=== PATIENT | male | born 1985 | race Caucasian/White ===

== ENCOUNTER 2017-11-27 12:58 | Emergency (ER) | payer BC, OTHER ==
[2017-11-27 13:21] VITALS: RESP 18
--- NOTE | 2017-11-27 13:58 | ED ---
General Adult HPI - General Chief complaint: Abdominal Pain Stated complaint: Abd Pain Time Seen by Provider: 11/27/17 13:31 Source: patient, RN notes reviewed Mode of arrival: ambulatory Limitations: no limitations - History of Present Illness Initial comments: Chief complaint history of present illness a 32-year-old male reports on-again off-again discomfort in the epigastric region. He saw his family doctor several weeks ago was placed on Pepcid. He's been taking it daily. For the past 3 or 4 days he reports the pain has continued epigastric region and radiates down to the back. Patient denies any direct injury though he does state that at work he does more bending and lifting. Patient denies any difficulty urinating no trouble or change in urinating. Reports she has a good appetite. Antacids don't help. No change in color of urine or stool. - Related Data Home Medications Medication Instructions Recorded Confirmed Bisoprolol-Hctz 2.5-6.25 mg [Ziac 1 tab PO DAILY 11/27/17 11/27/17 2.5-6.25] Ibuprofen [Motrin] 600 mg PO Q8HR PRN 11/27/17 11/27/17 Previous Rx's Medication Instructions Recorded Famotidine [Pepcid] 20 mg PO DAILY #30 tablet 11/27/17 Allergies Allergy/AdvReac Type Severity Reaction Status Date / Time No Known Allergies Allergy Verified 11/27/17 13:34 Review of Systems ROS Statement: Those systems with pertinent positive or pertinent negative responses have been documented in the HPI. Review of systems. No headache or visual acuity changes no chest pain or shortness of breath. The patient has epigastric discomfort goes to toward the back and down toward lower back area. No change in appetite. No change in bowel habits or frequency, no dysuria. No numbness no tingling no other changes other than epigastric discomfort. All systems were reviewed. Past medical problems hypertension. Surgeries none. Family history noncontributory and is much is no evidence of cancers or intestinal problems. Patient denies ALLERGIES, denies smoking, denies drinking. ROS Other: All systems not noted in ROS Statement are negative. Past Medical History Past Medical History: GERD/Reflux, Hypertension History of Any Multi-Drug Resistant Organisms: None Reported Past Surgical History: No Surgical Hx Reported Past Psychological History: No Psychological Hx Reported Smoking Status: Never smoker Past Alcohol Use History: None Reported Past Drug Use History: None Reported General Exam - General Exam Comments Initial Comments: General: The patient is awake and alert, in no distress, and does not appear acutely ill. Appears healthy. Complains of epigastric discomfort and has not seemed to change much with the past 4 days. Vital signs temp 98.0 pulse 71 respiratory rate 18 pulse ox 90% room air blood pressure 127/77 Eye: Pupils are equal, round and reactive to light, extra-ocular movements are intact ; there is normal conjunctiva bilaterally. No signs of icterus. Ears, nose, mouth and throat: There are moist mucous membranes and no oral lesions. Moderately severe overbite Neck: The neck is supple, there is no tenderness, no anterior cervical lymphadenopathy. Cardiovascular: There is a regular rate and rhythm. No murmur, rub or gallop is appreciated. Respiratory: Lungs are clear to auscultation, respirations are non-labored, breath sounds are equal. No wheezes, stridor, rales, or rhonchi. Gastrointestinal: Soft, non-distended, non-tender abdomen without masses or organomegaly noted. There is no rebound or guarding present. No CVA tenderness. Bowel sounds are unremarkable. No pain with deep palpation. Back: There is no tenderness to palpation in the midline. There is no obvious deformity. No rashes noted. Musculoskeletal: Normal ROM, no tenderness, There is no pedal edema. There is no calf tenderness or swelling. Sensation intact. Neurological: Denies any difficulty walking or with balance. No focal or lateralizing signs. Skin: Skin is warm and dry and no rashes or lesions are noted. Psychiatric: Cooperative, appropriate mood & affect, Limitations: no limitations Course Vital Signs 11/27/17 13:17 Temperature 98 F Pulse Rate 71 Respiratory 18 Rate Blood Pressure 127/77 O2 Sat by Pulse 98 Oximetry Medical Decision Making - Medical Decision Making Medical decision making; this is a 32-year-old male who complains of epigastric discomfort for ongoing for 3 weeks. The pain occasionally radiates through to his back. No change in appetite, no change in frequency or color of stool or urine. Labs show white count 6 hemoglobin 15 hematocrit of 47 with a potassium 4.3. BUN 14 creatinine 1.03 the GFR greater than 90. Glucose 95. Plasma lactic acid normal at 0.8. Amylase lipase within normal limits. Urine clean no signs of infection. X-rays of the abdomen were done and reviewed radiologist his impression is there is no sign of intestinal obstruction or pneumoperitoneum. Fecal pattern is normal. There is no evidence of a mass. There are no pathologic calcifications over the kidneys. Lung bases are clear. Impression; nonacute abdomen. No change. As read by Dr. Woodall The patient did state that his family doctor, Dr. Madrid wanted him to have an endoscopy if he does not get better. The patient will be advised to continue with Pepcid twice a day. Antacids when he has upset stomach and one hour after each meal. We discussed gastritis wall no ulcers or gastric ulcers etc. Labs x-rays all shared with the patient. Patient's vital signs stable advised to follow-up with family physician on Wednesday. - Lab Data Result diagrams: 11/27/17 14:07 11/27/17 14:07 Lab Results 11/27/17 11/27/17 11/27/17 Range/Units 14:07 14:07 14:22 WBC 6.3 (3.8-10.6) k/uL RBC 5.45 (4.30-5.90) m/uL Hgb 15.7 (13.0-17.5) gm/dL Hct 47.9 (39.0-53.0) % MCV 87.8 (80.0-100.0) fL MCH 28.8 (25.0-35.0) pg MCHC 32.9 (31.0-37.0) g/dL RDW 13.1 (11.5-15.5) % Plt Count 294 (150-450) k/uL Neutrophils % 65 % Lymphocytes % 24 % Monocytes % 7 % Eosinophils % 2 % Basophils % 1 % Neutrophils # 4.0 (1.3-7.7) k/uL Lymphocytes # 1.5 (1.0-4.8) k/uL Monocytes # 0.5 (0-1.0) k/uL Eosinophils # 0.1 (0-0.7) k/uL Basophils # 0.0 (0-0.2) k/uL Sodium 140 (137-145) mmol/L Potassium 4.3 (3.5-5.1) mmol/L Chloride 103 (98-107) mmol/L Carbon Dioxide 28 (22-30) mmol/L Anion Gap 9 mmol/L BUN 14 (9-20) mg/dL Creatinine 1.03 (0.66-1.25) mg/dL Est GFR (CKD-EPI)AfAm >90 (>60 ml/min/1.73 sqM) Est GFR (CKD-EPI)NonAf >90 (>60 ml/min/1.73 sqM) Glucose 95 (74-99) mg/dL Plasma Lactic Acid Jerry 0.8 (0.7-2.0) mmol/L Calcium 9.5 (8.4-10.2) mg/dL Total Bilirubin 0.9 (0.2-1.3) mg/dL AST 23 (17-59) U/L ALT 28 (21-72) U/L Alkaline Phosphatase 66 (38-126) U/L Total Protein 6.5 (6.3-8.2) g/dL Albumin 3.9 (3.5-5.0) g/dL Amylase 49 (30-110) U/L Lipase 56 (23-300) U/L Urine Color Urine Appearance (Clear) Urine pH (5.0-8.0) Ur Specific [place] (1.001-1.035) Urine Protein (Negative) Urine Glucose (UA) (Negative) Urine Ketones (Negative) Urine Blood (Negative) Urine Nitrite (Negative) Urine Bilirubin (Negative) Urine Urobilinogen (<2.0) mg/dL Ur Leukocyte Esterase (Negative) 11/27/17 Range/Units 15:55 WBC (3.8-10.6) k/uL RBC (4.30-5.90) m/uL Hgb (13.0-17.5) gm/dL Hct (39.0-53.0) % MCV (80.0-100.0) fL MCH (25.0-35.0) pg MCHC (31.0-37.0) g/dL RDW (11.5-15.5) % Plt Count (150-450) k/uL Neutrophils % % Lymphocytes % % Monocytes % % Eosinophils % % Basophils % % Neutrophils # (1.3-7.7) k/uL Lymphocytes # (1.0-4.8) k/uL Monocytes # (0-1.0) k/uL Eosinophils # (0-0.7) k/uL Basophils # (0-0.2) k/uL Sodium (137-145) mmol/L Potassium (3.5-5.1) mmol/L Chloride (98-107) mmol/L Carbon Dioxide (22-30) mmol/L Anion Gap mmol/L BUN (9-20) mg/dL Creatinine (0.66-1.25) mg/dL Est GFR (CKD-EPI)AfAm (>60 ml/min/1.73 sqM) Est GFR (CKD-EPI)NonAf (>60 ml/min/1.73 sqM) Glucose (74-99) mg/dL Plasma Lactic Acid Jerry (0.7-2.0) mmol/L Calcium (8.4-10.2) mg/dL Total Bilirubin (0.2-1.3) mg/dL AST (17-59) U/L ALT (21-72) U/L Alkaline Phosphatase (38-126) U/L Total Protein (6.3-8.2) g/dL Albumin (3.5-5.0) g/dL Amylase (30-110) U/L Lipase (23-300) U/L Urine Color Light Yellow Urine Appearance Clear (Clear) Urine pH 6.0 (5.0-8.0) Ur Specific [place] 1.007 (1.001-1.035) Urine Protein Negative (Negative) Urine Glucose (UA) Negative (Negative) Urine Ketones Negative (Negative) Urine Blood Negative (Negative) Urine Nitrite Negative (Negative) Urine Bilirubin Negative (Negative) Urine Urobilinogen <2.0 (<2.0) mg/dL Ur Leukocyte Esterase Negative (Negative) Disposition Clinical Impression: Acute gastritis Disposition: HOME SELF-CARE Condition: Fair Instructions: Gastritis (ED), Diet for Stomach Ulcers and Gastritis (ED) Additional Instructions: Take Pepcid morning and evening. Use antacids for an acute attack and one hour after meals and at bedtime. Do not take any nonsteroidal anti-inflammatories. Follow-up family doctor. Call early next week for the results of your H. pylori test for stomach ulcer disease. You may need to be on different medications including antibiotics. Strongly suggest you follow-up with your family doctor for endoscopy for esophageal and stomach and duodenal issues. Prescriptions: Famotidine [Pepcid] 20 mg PO DAILY #30 tablet Is patient prescribed a controlled substance at d/c from ED?: No Referrals: Will Madrid MD [Primary Care Provider] - 1-2 days Time of Disposition: 16:34
[2017-11-27 14:21] LABS: Basophils % (A) 1 %; Eosinophils # (A) 0.1 k/uL (0-0.7); Eosinophils % (A) 2 %; HCT 47.9 % (39.0-53.0); HGB 15.7 gm/dL (13.0-17.5); Lymphocytes # (A) 1.5 k/uL (1.0-4.8); Lymphocytes % (A) 24 %; MCH 28.8 pg (25.0-35.0); MCHC 32.9 g/dL (31.0-37.0); MCV 87.8 fL (80.0-100.0); Mean Platelet Volume 6.6; Monocytes # (A) 0.5 k/uL (0-1.0); Monocytes % (A) 7 %; Neutrophils % (A) 65 %; Platelet Count 294 k/uL (150-450); RBC 5.45 m/uL (4.30-5.90); RDW 13.1 % (11.5-15.5); WBC 6.3 k/uL (3.8-10.6)
[2017-11-27 14:33] LABS: ALT 28 U/L (21-72); AST 23 U/L (17-59); Albumin 3.9 g/dL (3.5-5.0); Alkaline Phosphatase 66 U/L (38-126); Amylase 49 U/L (30-110); Anion Gap 9 mmol/L; Blood Urea Nitrogen 14 mg/dL (9-20); Calcium 9.5 mg/dL (8.4-10.2); Carbon Dioxide 28 mmol/L (22-30); Chloride 103 mmol/L (98-107); Glucose 95 mg/dL (74-99); Lipase 56 U/L (23-300); Potassium 4.3 mmol/L (3.5-5.1); Sodium 140 mmol/L (137-145); Total Bilirubin 0.9 mg/dL (0.2-1.3); Total Protein 6.5 g/dL (6.3-8.2)
--- NOTE | 2017-11-27 14:58 | XR ---
EXAMINATION TYPE: XR abdomen 2V DATE OF EXAM: 11/27/2017 COMPARISON: 10/19/2010 HISTORY: Abdominal pain TECHNIQUE: 4 views FINDINGS: There is no sign of intestinal obstruction or pneumoperitoneum. Fecal pattern is normal. Th ere is no evidence of a mass. There are no pathologic calcifications over the kidneys. Lung bases are clear. IMPRESSION: Nonacute abdomen. No change.
[2017-11-27 16:06] LABS: Appearance,Urine Clear (Clear); Bilirubin,Urine Negative (Negative); Blood,Urine Negative (Negative); Color,Urine Light Yellow; Glucose,Urine (UA) Negative (Negative); Ketones,Urine Negative (Negative); Leukocyte Esterase,Urine Negative (Negative); Nitrite,Urine Negative (Negative); Protein,Urine Negative (Negative); Specific Gravity,Urine 1.007 (1.001-1.035); Urobilinogen,Urine <2.0 mg/dL (<2.0)
[2017-11-27 16:47] VITALS: BP 124/70; PULSE 74; TEMP 98.4
== END 2017-11-27 16:58 | disposition home or self-care (01) ==
LOC: EC 12:58
DX: K29.00 Acute gastritis without bleeding (principal); I10 Essential (primary) hypertension; K21.9 Gastro-esophageal reflux disease without esophagitis; Z79.899 Other long term (current) drug therapy
CPT/HCPCS: 36415; 74019; 80053; 81003; 82150; 83605; 83690; 85025; 86677; 99284

== ENCOUNTER → 2018-07-19 | Outpatient (CLI) | payer OTHER ==
--- NOTE | 2018-07-19 15:38 | US ---
EXAMINATION TYPE: US abdomen complete DATE OF EXAM: 07/19/2018 COMPARISON: US 06/04/2010 CLINICAL HISTORY: R10 ABD PAIN. Generalized abdominal pain x 3 months. EXAM MEASUREMENTS: Liver Length: 14.3 cm Gallbladder Wall: 0.28 cm CBD: 0.62 cm Spleen: 13.1 cm Right Kidney: 12.0 x 6.8 x 4.7 cm Left Kidney: 11.6 x 5.4 x 5.6 cm Pancreas: appears wnl Liver: appears wnl Gallbladder: appears anechoic, fold seen Evidence for sonographic Jackson's sign: no CBD: Upper limits Spleen: Supine measurement: 13.1 cm. Decub measurement:12.4 cm. Upper limits vs slightly enlarged. Right Kidney: No hydronephrosis or masses seen Left Kidney: No hydronephrosis or masses seen Upper IVC: appears wnl Abd Aorta: appears wnl IMPRESSION: 1. Ultrasound as visualized appears within normal limits
== END | disposition home or self-care (01) ==
LOC: RADUSWWP 13:10
PROVIDERS: ATTEND Family Medicine
DX: R10.84 Generalized abdominal pain (principal)
CPT/HCPCS: 76700

== ENCOUNTER 2019-07-19 17:09 | Emergency (ER) | payer OTHER ==
[2019-07-19 17:12] VITALS: TEMP 97.6
[2019-07-19 17:17] VITALS: RESP 18
[2019-07-19] MEDS ORDERED: ONDANSETRON 4 MG/2 ML VIAL IVP STA (17:18)
[2019-07-19] MEDS ORDERED: MORPHINE SULFATE 4 MG/ML SYRINGE IVP STA (17:18)
[2019-07-19] MEDS ORDERED: cefTRIAXone IN SWFI 1,000 MG/10 ML SYRINGE IVP STA (17:18)
--- NOTE | 2019-07-19 17:26 | ED ---
Upper Extremity HPI - General Chief Complaint: Extremity Injury, Upper Stated Complaint: IHS, partial amputation Time Seen by Provider: 07/19/19 17:13 Source: patient Mode of arrival: EMS Limitations: no limitations - History of Present Illness Initial Comments: Patient is a 33-year-old male presenting to the emergency department via EMS with a partial amputation of his left second digit. Patient states he was at work and got his hand caught in a mechanical machine. He denies being on blood thinners. Bleeding is controlled at this time. He did not receive any pain medicines through the EMS. Patient also has a small laceration to the third digit. Patient states his tetanus vaccine is up-to-date. He has no further complaints at this time. - Related Data Home Medications Medication Instructions Recorded Confirmed Bisoprolol-Hctz 2.5-6.25 mg [Ziac 1 tab PO DAILY 11/27/17 11/27/17 2.5-6.25] Ibuprofen [Motrin] 600 mg PO Q8HR PRN 11/27/17 11/27/17 Previous Rx's Medication Instructions Recorded Famotidine [Pepcid] 20 mg PO DAILY #30 tablet 11/27/17 Cephalexin [Keflex] 500 mg PO Q6HR 5 Days #20 cap 07/19/19 Allergies Allergy/AdvReac Type Severity Reaction Status Date / Time No Known Allergies Allergy Verified 07/19/19 17:12 Review of Systems ROS Statement: Those systems with pertinent positive or pertinent negative responses have been documented in the HPI. ROS Other: All systems not noted in ROS Statement are negative. Past Medical History Past Medical History: GERD/Reflux, Hypertension History of Any Multi-Drug Resistant Organisms: None Reported Past Surgical History: No Surgical Hx Reported Past Psychological History: No Psychological Hx Reported Smoking Status: Never smoker Past Alcohol Use History: None Reported Past Drug Use History: None Reported General Exam - General Exam Comments Initial Comments: GENERAL: Well-appearing, well-nourished and in no acute distress. HEAD: Atraumatic, normocephalic. EYES: Pupils equal round and reactive to light, extraocular movements intact, sclera anicteric, conjunctiva are normal. ENT: TMs normal, nares patent, oropharynx clear without exudates. Moist mucous membranes. NECK: Normal range of motion, supple without lymphadenopathy or JVD. LUNGS: Breath sounds clear to auscultation bilaterally and equal. No wheezes rales or rhonchi. HEART: Regular rate and rhythm without murmurs, rubs or gallops. ABDOMEN: Soft, nontender, normoactive bowel sounds. No guarding, no rebound. No masses appreciated. : Deferred EXTREMITIES: There is a partial amputation of the distal end of the second digit at approximate the DIP joint. Patient is unable to extend left index finger. Bleeding is controlled at this time NEUROLOGICAL: Normal speech, normal gait. PSYCH: Normal mood, normal affect. SKIN: Warm, Dry, normal turgor, no rashes. There is a 1 cm laceration to the third digit. Bleeding is controlled Limitations: no limitations Course Vital Signs 07/19/19 07/19/19 07/19/19 17:10 17:16 19:48 Temperature 97.6 F Pulse Rate 75 84 Respiratory 18 18 Rate Blood Pressure 115/71 119/83 O2 Sat by Pulse 97 97 Oximetry Procedures - Laceration Laceration #1 Consent Obtained: verbal consent Indication: laceration Site: hand (left index finger) Size (cm): 3 Description: irregular Depth: involves tendon Anesthetic Used: lidocaine 1% Anesthesia Technique: nerve block Amount (mls): 5 Pre-repair: irrigated extensively Type of Sutures: nylon Size of Sutures: 4-0 Number of Sutures: 5 Technique: simple, interrupted Patient Tolerated Procedure: well Laceration #2 Consent Obtained: verbal consent Indication: laceration Site: hand (left middle finger) Size (cm): 1 Description: flap Depth: simple, single layer Anesthetic Used: lidocaine 1% Anesthesia Technique: local infiltration Amount (mls): 2 Pre-repair: irrigated extensively Type of Sutures: nylon Size of Sutures: 4-0, 5-0 Number of Sutures: 1 Technique: simple, interrupted Patient Tolerated Procedure: well Medical Decision Making - Medical Decision Making Patient 33-year-old male here for partial amputation of the index finger left hand as well as a smaller laceration to the middle finger. X-rays reveal no acute fracture. There does appear to be a tendon injury at the level distal IP joint of the second digit as well as mild subluxation. Patient is unable to extend left index here. Patient is given antibiotics. 5 sutures were used to close the approximate the wound on the left index finger and one suture was used to close the wound on the middle finger. We spoke with on-call Ortho, Dr. Barreto who will see the patient in the morning. Patient was also placed in a finger splint with hyperextension of the distal IP joint. Patient will be continued on antibiotics. He is stable for discharge and he is in agreement with this plan of care. Case discussed with Dr. Quevedo. Disposition Clinical Impression: Open subluxation of distal interphalangeal (DIP) joint of finger, Laceration of left middle finger w/o foreign body w/o damage to nail Disposition: HOME SELF-CARE Condition: Stable Instructions (If sedation given, give patient instructions): Laceration (ED), Finger Dislocation (ED) Additional Instructions: Please return to the Emergency Department if symptoms worsen or any other concerns. Leave splint in place until follow-up with orthopedics tomorrow. Take antibiotics as prescribed. Continue with Motrin for pain and may alternate with Ultram. Prescriptions: Cephalexin [Keflex] 500 mg PO Q6HR 5 Days #20 cap Is patient prescribed a controlled substance at d/c from ED?: No Referrals: Will Madrid MD [Primary Care Provider] - 1-2 days Zaid Barreto DO [Doctor of Osteopathic Medicine] - 1-2 days
[2019-07-19] MEDS ORDERED: LIDOCAINE 1% INJ 10MG/ML (20 ML MDV) SQ ONE (17:49)
--- NOTE | 2019-07-19 18:00 | XR ---
Left hand HISTORY: Trauma, pain, partial amputation 3 views of the left hand There is a flexion deformity at the distal interphalangeal joint of the second digit left hand, there is associated soft tissue defect, punctate metallic density present within the soft tissues at the l evel of the top seen on the lateral exam. No evident fracture second digit although there is mild sub luxation suspected. IMPRESSION: Findings suggest tendon injury at the level of the distal interphalangeal joint of the se cond digit of the left hand with mild subluxation questioned, there may be flexion deformity.
[2019-07-19] MEDS ORDERED: traMADol 50 MG STARTER PACK 3 TAB BTL PO STA (19:22)
[2019-07-19 19:49] VITALS: BP 119/83; PULSE 84
== END 2019-07-19 19:48 | disposition home or self-care (01) ==
LOC: EC 17:09
DX: S63.241A Subluxation of distal interphalangeal joint of left index finger, initial encounter (principal); S61.213A Laceration without foreign body of left middle finger without damage to nail, initial encounter; I10 Essential (primary) hypertension; W31.9XXA Contact with unspecified machinery, initial encounter; Y93.89 Activity, other specified; Y92.69 Other specified industrial and construction area as the place of occurrence of the external cause; Y99.0 Civilian activity done for income or pay
CPT/HCPCS: 73130; 99283; 96374; 96375 ×2; J2270; J2405; J2001; J0696